=== PATIENT | female | born 2000 | race Two or more races ===

== ENCOUNTER 2020-08-12 17:06 | Emergency (ER) | payer MEDICAID, OTHER ==
[~2020-08-12] VITALS: Ht 165.1 cm; Wt 99.8 kg
[2020-08-12 17:18] VITALS: BP 140/73
[2020-08-12 18:15] LABS: Urine Bacteria NONE SEEN /hpf (None Seen); Urine Blood Negative /uL (Negative); Urine Mucus FEW (None Seen); Urine Specific Gravity 1.025 (1.001-1.035); Urine WBC 2 /hpf (0 - 5)
[2020-08-12 18:22] LABS: Alcohol, Urine < 3.0 mg/dL (0-10); Amphetamine Screen, Urine NEGATIVE (NEGATIVE); Barbiturate Scree,Urine NEGATIVE (NEGATIVE); Benzodiazephine Screen, Urine NEGATIVE (NEGATIVE); Cannabinoid Screen, Urine NEGATIVE (NEGATIVE); Cocaine Screen, Urine NEGATIVE (NEGATIVE); Opiate Scree,Urine NEGATIVE (NEGATIVE); Phencyclidine Screen, Urine NEGATIVE (NEGATIVE)
[2020-08-12 18:31] LABS: Basophils # (auto) 0 10 ^3/uL (0-0.2); Basophils % (auto) 0.4 % (0.0-2.0); Eosinophils # (auto) 0.1 10 ^3/uL (0-0.8); Eosinophils % (auto) 1.7 % (0.0-7.0); Hematocrit 38.2 % (36.0-46.0); Hemoglobin 12.6 g/dL (12.2-16.2); Lymphocytes % (auto) 31.2 % (10.0-50.0); Mean Corpuscular Hemoglobin 28.8 pg (28.0-32.0); Mean Corpuscular Hgb Conc. 32.9 g/dL (32.0-36.0); Mean Corpuscular Volume 87.6 fL (80.0-100.0); Monocytes # (auto) 0.6 10 ^3/uL (0-1.3); Monocytes % (auto) 8.7 % (0.0-12.0); Neutrophils # (auto) 3.7 10 ^3/uL (1.6-8.6); Platelet Count (auto) 259 10^3/uL (140-450); Red Blood Cells 4.36 10^6/uL (4.0-5.20); Red Cell Distribution Width 13.9 % (11.8-14.3); White Blood Cell 6.4 10^3/uL (4.4-10.8)
[2020-08-12] MEDS ORDERED: cefTRIAXone SOD 1,000 MG VL IM ONE (19:00)
[2020-08-12 19:08] LABS: Potassium 3.9 mmol/L (3.5-5.1)
[2020-08-12 19:16] LABS: BUN/Creatinine Ratio 15.9; Bilirubin, Total 0.2 mg/dL (0.2-1.0); Calcium 8.9 mg/dL (8.5-10.1); Total Protein 7.4 g/dL (6.4-8.2)
== END 2020-08-12 21:15 | disposition home or self-care (01) ==
LOC: ER 17:06
DX: O23.31 Infections of other parts of urinary tract in pregnancy, first trimester (principal); Z3A.10 10 weeks gestation of pregnancy
CPT/HCPCS: 36415; 80053; 80307; 81001; 84702; 85025

== ENCOUNTER 2022-10-14 09:31 | Emergency (ER) | payer MEDICAID ==
[~2022-10-14] VITALS: Ht 165.1 cm; Wt 106.6 kg
[2022-10-14 09:35] VITALS: BP 139/82
[2022-10-14] MEDS ORDERED: ASPirin 325 MG TAB PO ONE (09:45)
[2022-10-14 11:01] LABS: Basophils # (auto) 0 10 ^3/uL (0-0.2); Basophils % (auto) 0.6 % (0.0-2.0); Eosinophils # (auto) 0.1 10 ^3/uL (0-0.8); Eosinophils % (auto) 1.8 % (0.0-7.0); Hematocrit 41.9 % (36.0-46.0); Hemoglobin 13.9 g/dL (12.2-16.2); Lymphocytes # (auto) 2.3 10 ^3/uL (0.4-5.4); Lymphocytes % (auto) 42.7 % (10.0-50.0); Mean Corpuscular Hemoglobin 29.4 pg (28.0-32.0); Mean Corpuscular Hgb Conc. 33.3 g/dL (32.0-36.0); Mean Corpuscular Volume 88.3 fL (80.0-100.0); Monocytes # (auto) 0.5 10 ^3/uL (0-1.3); Neutrophils # (auto) 2.5 10 ^3/uL (1.6-8.6); Neutrophils % (auto) 45.9 % (37.0-80.0); Nucleated Red Blood Cells % 0.2 %; Red Blood Cells 4.74 10^6/uL (4.0-5.20); Red Cell Distribution Width 12.9 % (11.8-14.3); White Blood Cell 5.4 10^3/uL (4.4-10.8)
[2022-10-14 11:22] LABS: Urine Bacteria NONE SEEN /hpf (None Seen); Urine Blood Negative /uL (Negative); Urine Specific Gravity 1.023 (1.001-1.035); Urine WBC 1 /hpf (0 - 5)
[2022-10-14 11:24] LABS: Albumin 3.4 g/dL (3.4-5.0); Calcium 8.7 mg/dL (8.5-10.1); Potassium 4.2 mmol/L (3.5-5.1)
[2022-10-14 11:27] LABS: BUN/Creatinine Ratio 21.3; Bilirubin, Total 0.5 mg/dL (0.2-1.0); Total Protein 6.9 g/dL (6.4-8.2)
[2022-10-14] MEDS ORDERED: IBU600T PO (12:22)
== END 2022-10-14 12:43 | disposition home or self-care (01) ==
LOC: ER 09:31
DX: R07.89 Other chest pain (principal)
CPT/HCPCS: 36415; 80053; 81001; 84484; 85025; 85379; 93005

== ENCOUNTER 2023-02-16 12:05 | Emergency (ER) | payer MEDICAID ==
[~2023-02-16] VITALS: Ht 165.1 cm; Wt 104.0 kg
[~2023-02-16 12:05] MED LIST: IBU600T PO; MISO200T67 PO
[2023-02-16 14:12] VITALS: BP 133/83
[2023-02-16 15:11] LABS: Urine Bacteria NONE SEEN /hpf (None Seen); Urine Blood 3+ /uL (Negative); Urine Specific Gravity 1.014 (1.001-1.035); Urine WBC 33 /hpf (0 - 5)
[2023-02-16] MEDS ORDERED: BACDST PO (15:32)
== END 2023-02-16 15:35 | disposition home or self-care (01) ==
LOC: ER 12:05
DX: N39.0 Urinary tract infection, site not specified (principal); Z88.2 Allergy status to sulfonamides
CPT/HCPCS: 81001; 87210

== ENCOUNTER 2023-09-19 13:20 | Emergency (ER) | payer MEDICAID ==
[~2023-09-19] VITALS: Ht 165.1 cm; Wt 101.3 kg
[~2023-09-19 13:20] MED LIST changes: +BACDST PO
[2023-09-19 16:02] LABS: Urine Bacteria MOD /hpf (None Seen); Urine Blood Negative /uL (Negative); Urine Clarity Clear (Clear); Urine Color Yellow (Yellow); Urine Mucus FEW (None Seen); Urine Protein, UAD TRACE (Negative); Urine Specific Gravity 1.025 (1.001-1.035); Urine WBC 2 /hpf (0 - 5)
[2023-09-19] MEDS ORDERED: NITR-87 PO (16:47)
[2023-09-19 17:00] VITALS: BP 119/71; PULSE 88; RESP 18; TEMP 98; O2SAT 98
== END 2023-09-19 17:01 | disposition home or self-care (01) ==
LOC: ER 13:20
DX: O23.42 Unspecified infection of urinary tract in pregnancy, second trimester (principal); R10.2 Pelvic and perineal pain; Z3A.17 17 weeks gestation of pregnancy; Z79.1 Long term (current) use of non-steroidal anti-inflammatories (NSAID); Z79.899 Other long term (current) drug therapy
CPT/HCPCS: 36415; 76805; 81001; 84702

== ENCOUNTER 2023-11-21 10:05 | Emergency (ER) | payer MEDICAID ==
[~2023-11-21] VITALS: Ht 160 cm; Wt 102.2 kg
[~2023-11-21 10:05] MED LIST changes: +NITR-87 PO
[2023-11-21] MEDS ORDERED: ACETAMINOPHEN 500 MG TAB PO ONE (13:15)
[2023-11-21 13:56] VITALS: BP 125/73; PULSE 110; RESP 16; TEMP 98.1; O2SAT 98
[2023-11-21 14:53] LABS: Rapid Strep A Screen-Throat Negative
[2023-11-21] MEDS ORDERED: LIDO2SOL26 MT (15:28)
[2023-11-21] MEDS ORDERED: ACET500T58 PO (15:28)
== END 2023-11-21 15:36 | disposition home or self-care (01) ==
LOC: ER 10:05
DX: J02.9 Acute pharyngitis, unspecified (principal); Z79.1 Long term (current) use of non-steroidal anti-inflammatories (NSAID); Z79.899 Other long term (current) drug therapy
CPT/HCPCS: 87070; 87880